=== PATIENT | male | born 1965 | race Caucasian/White ===

== ENCOUNTER 2023-12-12 17:14 | Emergency (ER) | payer OTHER, SELFPAY ==
[2023-12-12 17:25] VITALS: BP 115/75; PULSE 93; RESP 18; TEMP 36.8; O2SAT 99; BMI 28.2
--- NOTE | 2023-12-12 17:52 | ED.UPPEXIN ---
HPI - Extremity Injury (Upper) General Date Seen: 12/12/23 Chief Complaint: Extremity Pain/Injury, Upper Stated Complaint: bicep injury-snapped muscle Time Seen by Provider: 12/12/23 17:45 Source: patient and RN notes reviewed Mode of arrival: ambulatory Limitations: no limitations History of Present Illness HPI narrative: This very pleasant 58-year-old male is ambulatory into the ED of his own accord with concern of left arm injury. He was lifting a refrigerator out of a shopping cart when he felt his left bicep snap. There is pain with bending at the elbow, he has difficulty bending the elbow. Denies any numbness or tingling. When he came in he was holding his arm completely extended, status hand felt a little funny but when I redirect him to put some bending his elbow this dissipates. He has had no prior injury. His brother did rupture his biceps and had to have surgery before, he is concerned about this. MD complaint: injury to: left and arm Related Data Home Medications ?Medication ?Instructions ?Recorded ?Confirmed No Known Home Medications 12/12/23 12/12/23 Allergies Allergy/AdvReac Type Severity Reaction Status Date / Time No Known Drug Allergies Allergy Verified 12/12/23 17:25 Review of Systems Narrative: As per HPI. Exam Const: Vital Signs, click to edit/add: Vital Signs - 24 hr 12/12/23 17:25 Temperature 98.2 F Pulse Rate [Pulse Oximeter] 93 Respiratory Rate 18 Blood Pressure [Ri ght Upper Arm] 115/75 Pulse Oximetry 99 Oxygen Delivery Me thod Room Air Patient is alert, interactive, no apparent distress holding his left arm straight. He has normal distal sensation in his fingers, normal coloration, good radial pulse. He can do some flexion at the elbow, does look like there is a paucity of attachment along the distal biceps. I can easily do ranges of motion about his elbow without causing him any pain. He really does seem to have difficulty doing flexion of the elbow. He has no pain along the bicipital groove. He can shrug his shoulders, withholding of his elbow area, can mobilize his arm about the shoulder. Documenting provider has reviewed patient's vital signs: yes Course Course ED Course: Will obtain x-ray just to ensure we do not see any bony fragments that might allude to definite avulsion. Reevaluation(s) Time of Reevaluation #1: 18:58 Reevaluation #1: Have reviewed that the x-rays are showing no fracture. Did briefly review with [facility] on for [facility]. Will have him do conservative management, follow-up with them for further evaluation and treatment. Vital Signs Vital signs: Initial Vital Signs Temperature 98.2 F 12/12/23 17:25 Temperature Source Temporal Artery Scan 12/12/23 17:25 Pulse Rate 93 12/12/23 17:25 Respiratory Rate 18 12/12/23 17:25 Blood Pressure 115/75 12/12/23 17:25 Blood Pressure Mean 88 12/12/23 17:25 Blood Pressure Position Sitting 12/12/23 17:25 Pulse Oximetry 99 12/12/23 17:25 Oxygen Delivery Method Room Air 12/12/23 17:25 Vital Signs Temperature 98.2 F 12/12/23 17:25 Pulse Rate 93 12/12/23 17:25 Respiratory Rate 18 12/12/23 17:25 Blood Pressure 115/75 12/12/23 17:25 Pulse Oximetry 99 12/12/23 17:25 Oxygen Delivery Method Room Air 12/12/23 17:25 Temperature 98.2 F 12/12/23 17:25 Pulse Rate 93 12/12/23 17:25 Respiratory Rate 18 12/12/23 17:25 Blood Pressure 115/75 12/12/23 17:25 Pulse Oximetry 99 12/12/23 17:25 Oxygen Delivery Method Room Air 12/12/23 17:25 Discharge Plan Discharge Clinical Impression: Injury of biceps brachii muscle Patient Disposition: Home, Self-Care Condition: Stable Instructions: Tendon Rupture (ED) Additional Instructions: Use sling for immobilization, can use Jared wrap around the arm if it does start to swell, use ice to decrease any swelling or pain. Can use Tylenol and ibuprofen if needed for discomfort. Call [facility] tomorrow morning to get scheduled for a follow-up, phone number is [phone]. Prescriptions: No Action No Known Home Medications Follow Up/Referrals: Provider,Not a Local [Primary Care Provider] - Stand Alone Forms: MyHealth Info Instructions
--- NOTE | 2023-12-12 18:01 | CRLHL7_ITS ---
For Patients: As a result of the Cures Act, medical imaging exams and procedure reports are released immediately into your electronic medical record. You may view this report before your referring provider. If you have questions, please contact your health care provider. Indication: Injury. Technique: Right elbow, 3 views. Comparison: None. Findings/Impression: Bones: Alignment is normal. No displaced fractures or bone lesions. Chronic changes around the medial/lateral condyles. Joint spaces: Unremarkable. Soft tissues: Unremarkable. Dictated by Shawn Wayne MD @ 12/12/2023 6:49:13 PM (Electronically Signed)
[2023-12-12 19:27] VITALS: BP 120/74; PULSE 85; RESP 18; TEMP 36.8; O2SAT 99
== END 2023-12-12 19:28 | disposition home or self-care (01) ==
PROVIDERS: Emergency Provider Family Medicine
DX: S46.202A Unspecified injury of muscle, fascia and tendon of other parts of biceps, left arm, initial encounter (principal)
CPT/HCPCS: 73080; 99283